=== PATIENT | male | born 1940 | race Caucasian/White ===

== ENCOUNTER 2021-06-06 11:22 | Day surgery (SDC) | payer MEDICARE ==
[2021-05-31 10:14] LABS: BASOPHILS % (AUTO) 0.7 % (0-1); EOSINOPHILS # (AUTO) 0.2 X10'3 (0-0.9); EOSINOPHILS % (AUTO) 2.8 % (0-6); HEMATOCRIT 41.3 % (42.0-52.0); HEMOGLOBIN 14.2 g/dl (14.0-17.9); MEAN CORPUSCULAR HEMOGLOBIN 34.2 PG (27.0-31.0); MEAN CORPUSCULAR HGB CONC 34.4 g/dL (33.0-36.5); MEAN CORPUSCULAR VOLUME 99.5 FL (78-98); MEAN PLATELET VOLUME 9.3 FL (7.4-10.4); MONOCYTES # (AUTO) 0.6 X10'3 (0-0.9); MONOCYTES % (AUTO) 8.6 % (2-12); NEUTROPHILS % (AUTO) 73.9 % (42-75); PLATELET COUNT 128 X10'3 (140-440); RED BLOOD COUNT 4.15 X10'6 (4.70-6.10); RED CELL DISTRIBUTION WIDTH 14.7 % (11.5-14.5); WHITE BLOOD COUNT 6.8 X10'3 (4.5-11.0)
[2021-05-31 10:15] LABS: APTT 27 SECONDS (22-32)
[2021-05-31 10:23] LABS: ALBUMIN 3.3 G/DL (3.4-5.0); ANION GAP 7 (8-16); BLOOD UREA NITROGEN 16 MG/DL (7-18); CALCIUM 8.2 MG/DL (8.5-10.1); CHLORIDE 110 MMOL/L (99-107); GLUCOSE 106 MG/DL (70-104); POTASSIUM 4.1 MMOL/L (3.5-5.1); SODIUM 145 MMOL/L (135-145); TOTAL CARBON DIOXIDE 27.8 MMOL/L (24-32); eGFR > 90 ML/MIN
[2021-06-06] VITALS (8 sets, daily range): BP systolic 149–173; BP diastolic 85–92
[~2021-06-06] VITALS: Ht 177.8 cm; Wt 82.0 kg
[~2021-06-06 11:22] MED LIST: ATOR40TA72 PO; CARV-50 PO; CLOP75TA15 PO; DOXA4TAB43 PO; LISI20TA28 PO; METF-900 PO; NITR0.4T51 SL
[2021-06-06] MEDS ORDERED: normal saline 1,000 ML IV SCH (11:40)
[2021-06-06] MEDS ORDERED: diphenhydrAMINE 25mg capsule PO PRN (11:40)
[2021-06-06] MEDS ORDERED: LORazepam 0.5 MG tablet PO PRN (11:40)
[2021-06-06] MEDS ORDERED: FLO0.4C PO (11:47)
[2021-06-06] MEDS ORDERED: TERA5CAP4 PO (11:47)
[2021-06-06] MEDS ORDERED: LIDOcaine 1% (10mg/ml)w/preservative injection 20ml MDV ONE (12:21)
[2021-06-06] MEDS ORDERED: midazolam 1 mg/ML 2ml injection ONE ×2 (12:21→13:50)
[2021-06-06] MEDS ORDERED: fentaNYL/PF 50MCG/1 ML 2ML syringe ONE (12:21)
[2021-06-06] MEDS ORDERED: iohexol 350MG/ML 100ml bottle IV ONE (12:22)
[2021-06-06] MEDS ORDERED: heparin 1,000 UNITS/NS 500ml 500 ML ONE (12:22)
[2021-06-06] MEDS ORDERED: FLU VACC QS2021-22(6MOS UP)/PF 60 MCG/0.5 ML SYRINGE IM ONE (12:55)
[2021-06-06] MEDS ORDERED: diphenhydrAMINE 50 mg/ml inj ONE (13:10)
[2021-06-06] MEDS ORDERED: iohexol 350 MG/ML 50ML vial IV ONE (14:16)
[2021-06-06] MEDS ORDERED: ondansetron/PF 4mg/2ml inj IV PRN (15:20)
[2021-06-06] MEDS ORDERED: nitroGLYCERIN 0.4mg SUBLingual tab SL PRN (15:20)
[2021-06-06] MEDS ORDERED: normal saline 1000ml 1,000 ML IV SCH (15:20)
[2021-06-06] MEDS ORDERED: acetaminophen 325mg tablet PO PRN (15:20)
[2021-06-06] MEDS ORDERED: HYDROcodone/acetaminophen 5mg/325mg tablet PO PRN (15:20)
[2021-06-06] MEDS ORDERED: HYDROcodone/acetaminophen 10/325mg tab PO PRN (15:20)
[2021-06-06] MEDS ORDERED: proCHLORperazine 10 MG/2 ml inj IV PRN (15:20)
[2021-06-06] MEDS ORDERED: OXAZEpam 15mg capsule PO PRN (15:20)
== END 2021-06-06 18:30 | disposition home or self-care (01) ==
LOC: SSTAY O 11:22
PROVIDERS: ATTEND Internal Medicine Interventional Cardiology
DX: R07.89 Other chest pain (principal); I25.110 Atherosclerotic heart disease of native coronary artery with unstable angina pectoris; I25.82 Chronic total occlusion of coronary artery; I11.0 Hypertensive heart disease with heart failure; I50.9 Heart failure, unspecified; I48.91 Unspecified atrial fibrillation; I48.92 Unspecified atrial flutter; I65.29 Occlusion and stenosis of unspecified carotid artery; E78.5 Hyperlipidemia, unspecified; Z95.0 Presence of cardiac pacemaker; Z79.899 Other long term (current) drug therapy; Z79.01 Long term (current) use of anticoagulants; Z95.1 Presence of aortocoronary bypass graft; Z87.891 Personal history of nicotine dependence
CPT/HCPCS: 36415; 80048; 82948; 85025; 85610; 85730; 93005; 93459; 99152; C1769; J1200; J1644; J2250; J3010; J3490; Q0163; Q9967; 36569; 76937; 93458; A4620